=== PATIENT | male | born 1950 | race Hispanic/Latino ===

== ENCOUNTER 2020-05-27 11:59 | Observation (INO) | payer MEDICARE, MEDICAID ==
[~2020-05-27] VITALS: Ht 172.7 cm; Wt 75.7 kg
--- NOTE | 2020-05-27 12:11 | NUR ---
Pt to room # 13 with steady gait for bedside triage
--- NOTE | 2020-05-27 13:11 | NUR ---
PATIENT IS RESTING. NO DISTRESS NOTED
--- NOTE | 2020-05-27 14:11 | NUR ---
PATIENT IS RESTING NO DISTRESS NOTED
[2020-05-27] MEDS ORDERED: SERTRALINE HCL50 MG PO (14:21)
[2020-05-27] MEDS ORDERED: METOPIRONE PO (14:21)
[2020-05-27] MEDS ORDERED: CARBAMAZEPIN200 MG PO (14:22)
[2020-05-27] MEDS ORDERED: BENZTROPINE0.5 MG PO (14:23)
[2020-05-27] MEDS ORDERED: MIRTAZAPINE15 MG PO (14:24)
--- NOTE | 2020-05-27 15:35 | NUR ---
Admission Note Report Given to: NORY Transported by: Wheelchair X Stretcher Transported with: X Nurse Transporter X Patent IV O2 X Chief Security Officer Location: ICU X [facility]
--- NOTE | 2020-05-27 15:47 | NUR ---
PT ARRIVED TO MED/SURG VIA WHEELCHAIR ACCOMPANIED BY ER STAFF MEMBER;PT AMBULATED WITH A WEAK GAIT TO BEDSIDE;WT AND VS OBTAINED BY SANAM MCNAMARA;PT MOSTLY GUINEAN SPEAKING, AWAITING FAMILY TO ARRIVE FOR TRANSLATION AND FURTHER ADMISSION;PT DENIES ANY CURRENT PAIN OR DISCOMFORTS,PAIN SCALE AND REPORTING EDUCATED;RESPIRATIONS EVEN AND UNLABORED WITH CLEAR LUNG SOUNDS NOTED;ABDOMEN SOFT ON PALPATION AND ACTIVE IN ALL 4 QUADRANTS,PT REPORTS LAST BM 05/27/20;WEAK PEDAL PULSES WITH +2 EDEMA NOTED TO BLE,ENCOURAGED ELEVATION OF BLE;SLIGHT TREMORS NOTED THROUGHOUT BODY AT TIMES;SKIN INTACT;TELE MONITORING IN PLACE;#20G TO RIGHT HAND FLUSHED AND PATENT,NS STARTED @ 100ML/HR PER ORDER;PT DENIES ANY ADDITIONAL NEEDS AT THIS TIME;ENCOURAGED TO CALL FOR ASSISTANCE IF NEEDED;FALL PRECAUTIONS IN PLACE WITH BED IN THE LOWEST POSITION,BED ALARM ON FOR SAFETY,AND CALL LIGHT IN REACH;WILL CONTINUE TO MONITOR
[2020-05-27 15:58] VITALS: BP 167/95
--- NOTE | 2020-05-27 16:10 | NUR ---
JAMES,ANRP AT BEDSIDE DISCUSSING POC.
[2020-05-27] MEDS ORDERED: METOPROLOL50 M1 PO (17:06)
--- NOTE | 2020-05-27 17:30 | NUR ---
PT RESTING IN SEMI FOWLERS POSITION WITH NIECE AT BEDSIDE;RESPIRATIONS REMAIN EVEN AND UNLABORED ON RA;PT DENIES ANY CURRENT PAIN OR NEEDS;TELE MONITORING IN PLACE;IV FLUIDS INFUSING WITH EASE PER ORDER;NIECE ABLE TO PROVIDED HX ON PT FOR ADMISSION;PT DENIES ANY ADDITIONAL NEEDS AT THIS TIME AND IS ENCOURAGED TO CALL FOR ASSISTANCE IF NEEDED;CALL LIGHT IN REACH;WILL CONTINUE TO MONITOR
--- NOTE | 2020-05-27 18:14 | NUR ---
LAB AT BEDSIDE
[2020-05-27 18:45] VITALS: BP 157/94
--- NOTE | 2020-05-27 19:10 | NUR ---
REPORT RECEAVED FROM CARMEN MADISON. PT RESTING IN BED. NO S/S OF DISTRESS AT THIS TIME. WILL CONTINUE TO MONITOR.
--- NOTE | 2020-05-27 20:47 | NUR ---
PT RESTING IN BED ALERT AND ORIENTED. RESPIRATIONS EVEN AND UNLABORED ON RA. PT DENIES ANY PAIN OR DISCOMFORT AT THIS TIME. PEDAL PULSES STRONG. 100CC EMPTIED FROM URINAL. SAFETY PRECAUTIONS IN PLACE. WILL CONTINUE TO MONITOR.
[2020-05-27 23:28] VITALS: BP 152/92
--- NOTE | 2020-05-27 23:44 | NUR ---
PT RESTING IN BED, RESPIRATIONS EVEN AND UNLABORED ON RA. NO S/S OF DISTRESS AT THIS TIME. SAFETY PRECAUTIONS IN PLACE. WILL CONTINUE TO MONITOR.
[2020-05-28] VITALS (8 sets, daily range): BP systolic 132–153; BP diastolic 82–103
--- NOTE | 2020-05-28 04:01 | NUR ---
PT RESTING IN BED. RESPIRATIONS EVEN AND UNLABORED ON RA. NO S/S OF DISTRESS AT THIS TIME. WILL CONTINE TO MONITOR.
[2020-05-28 06:01] LABS: CHOLESTEROL HDL RATIO 4.3 (<4.4 (CALC))
--- NOTE | 2020-05-28 06:46 | NUR ---
05/28/20 PT note- patient is screened for PT intervention and would benefit from PT consult if medical agrees
--- NOTE | 2020-05-28 07:39 | NUR ---
REPORT RECEIVED FROM GEOVANNY FOSTER. PT RESTING IN BED SEMI FOWLERS; ALERT TO SELF ONLY. UNABLE TO ANSWER , PLACE, OR YEAR. PT APPEARS TO HAVE A COGNITIVE DELAY WITH ASSOCIATED GARBLED SPEECH. TALKS FAST AND LAUGHS INAPPROPRIATELY. PERRLA; EQUAL CHIROPRACTOR SOLE PRACTITIONER. TELE ON. IV FLUIDS INFUSING WITHOUT DIFFICULTY; IV SITE APPEARS HEALTHY. SAFETY MEASURES IN PLACE INCLUDING BED ALARM. CALL LIGHT WITHIN REACH; NEEDS ANTICIPATED BY STAFF.
[2020-05-28 08:08] LABS: HEMATOCRIT 45.8 % (39.0-50.0); HEMOGLOBIN 14.4 g/dl (14.0-18.0); IMMATURE GRANULOCYTES 0.3 % (0.0-5.0); MEAN CELL VOLUME 94.4 fL CALC (80.0-100.0); MEAN CORPUSCULAR HGB 29.7 pG CALC (26.0-32.0); MEAN CORPUSCULAR HGB CONC 31.4 g/dL CAL (32.0-36.0); NEUT# 6.07 thou/uL (1.82-7.42); RED BLOOD COUNT 4.85 mill/uL (4.70-6.10); RED CELL DISTRI WIDTH 12.8 % (11.5-15.5)
--- NOTE | 2020-05-28 08:15 | NUR ---
DR. MALIK AT BEDSIDE.
[2020-05-28 08:23] LABS: ALBUMIN 4.1 g/dL (3.2-5.0); ALKALINE PHOSPHATASE 217 u/l (38-126); ANION GAP 12 (6-22 (CALC)); BUN 16 mg/dL (8-23); BUN/CREATININE RATIO 15 (12-20 (CALC)); CARBON DIOXIDE 22 mmol/l (22-30); CHLORIDE 107 mmol/l (95-108); CREATININE 1.1 mg/dL (0.7-1.3); GFR > 60 ML/MIN (>=60 (CALC)); GFR FOR AFR.AMER. > 60 ML/MIN (>=60 (CALC)); POTASSIUM 4.1 mmol/l (3.5-5.1); SGOT/AST 35 u/l (19-48); SODIUM 136 mmol/l (137-146); TOTAL PROTEIN 7.3 g/dL (6.3-8.2)
[2020-05-28 08:25] LABS: BILIRUBIN, TOTAL 0.9 mg/dL (0.0-1.4)
--- NOTE | 2020-05-28 10:45 | NUR ---
PT AT BEDSIDE FOR EVAL. PT HAS DIFFICULTY AMBULATING R/T PARKINSONS AND HAS TONGUE THRUSTING. PT IS PLEASANT AND COOPERATIVE.
--- NOTE | 2020-05-28 11:00 | NUR ---
SISTER AT BEDSIDE; QUESTIONS ANSWERED TO SATISFACTION.
--- NOTE | 2020-05-28 16:45 | NUR ---
ORTHOSTATIC VS OBTAINED AND NEGATIVE. DIOR HOSE APPLIED. SISTER REMAINS AT BEDSIDE. URINE TO GOWN AND LINEN; REPLACED. VOIDING FREQUENTLY IN URINAL; SISTER CONCERNED ABOUT POSSIBLE BPH DX.
--- NOTE | 2020-05-28 18:58 | NUR ---
REPORT RECEIVED FROM ODIN STAUFFER RESTING IN BED. NO S/S OF DISTRESS AT THIS ITME. WILL CONTINUE TO MONITOR.
--- NOTE | 2020-05-28 21:12 | NUR ---
PT RESTING IN BED ALERT TO SELF. RESPIRATIONS EVEN AND UNLABORED ON RA. PT DENIES ANY PAIN OR DISCOMFORT AT THIS TIME. PEDAL PULSES STRONG. 125CC EMPTIED FROM URINAL. SAFETY PRECAUTIONS IN PLACE. WILL CONTINUE TO MONITOR.
[2020-05-29] VITALS: BP 153/99
--- NOTE | 2020-05-29 00:47 | NUR ---
PT RESTING IN BED, RESPIRATIONS EVEN AND UNLABORED, NO S/S OF DISTRESS AT THIS TIME. WILL CONTINUE TO MONITOR.
[2020-05-29 03:00] VITALS: BP 155/95
--- NOTE | 2020-05-29 04:10 | NUR ---
PT RESTING IN BED, NO S/S OF DISTRESS AT THIS TIME.
[2020-05-29 05:09] LABS: HEMATOCRIT 45.8 % (39.0-50.0); HEMOGLOBIN 14.4 g/dl (14.0-18.0); MEAN CELL VOLUME 93.7 fL CALC (80.0-100.0); MEAN CORPUSCULAR HGB 29.4 pG CALC (26.0-32.0); MEAN CORPUSCULAR HGB CONC 31.4 g/dL CAL (32.0-36.0); RED BLOOD COUNT 4.89 mill/uL (4.70-6.10); RED CELL DISTRI WIDTH 12.7 % (11.5-15.5)
[2020-05-29 05:40] LABS: ANION GAP 11 (6-22 (CALC)); BUN 15 mg/dL (8-23); BUN/CREATININE RATIO 14 (12-20 (CALC)); CARBON DIOXIDE 21 mmol/l (22-30); CHLORIDE 107 mmol/l (95-108); GFR > 60 ML/MIN (>=60 (CALC)); GFR FOR AFR.AMER. > 60 ML/MIN (>=60 (CALC)); POTASSIUM 4.7 mmol/l (3.5-5.1); SODIUM 135 mmol/l (137-146)
[2020-05-29 07:31] VITALS: BP 159/98
--- NOTE | 2020-05-29 07:32 | NUR ---
REPORT RECEIVED FROM GEOVANNY FOSTER. PT RESTING IN BED SEMI FOWLERS; ALERT AND OREINTED TO PERSON ONLY; COGNITIVE DELAY; CONTINUES WITH ADVANCED PARKINSONS ACTIVITY LEVEL AND TONGUE THRUSTING. DENIES PAIN. RESPIRATIONS EVEN AND UNLABORED ON ROOM AIR. 2 TARYN INTACT TO LEFT FOREHEAD; PT DECLINES HEADACHE OR PAIN TO SITE. LUNGS ARE CLEAR. TELE ON; DIOR HOSE INTACT TO BLE. IV FLUIDS INFUSING WITHOUT DIFFICULTY; IV SITE APPEARS HEALTHY. SAFETY MEASURES IN PLACE. CALL LIGHT WITHIN REACH.
--- NOTE | 2020-05-29 09:30 | NUR ---
PT SWALLOWS MEDICATIONS WHOLE; DOES HAVE SOME DIFFICULTY GETTING PILLS INTO MOUTH; ASSISTED WITH WATER. IV FLUID RATE DECREASED TO KVO. VOIDING FREQUENTLY CLEAR YELLOW URINE IN URINAL.
[2020-05-29 10:30] VITALS: BP 159/98
--- NOTE | 2020-05-29 13:02 | NUR ---
SISTER AT BEDSIDE. PT REPOSITIONING HIMSELF IN BED; SITTING UP EATING LUNCH AT THIS TIME. NO REQUESTS OR CONCERNS. CALL LIGHT WITHIN REACH.
--- NOTE | 2020-05-29 13:31 | NUR ---
IV site discontinued, cath intact. No edema , no redness, voices no discomfort.
--- NOTE | 2020-05-29 14:22 | NUR ---
Discharge instructions given. Patient verbalizes understanding of same. Discharged in stable condition via Wheelchair to Home with family. All belongings sent with pt.
== END 2020-05-29 14:21 | disposition home or self-care (01) ==
LOC: ED 11:59 → ED-I 14:20 → ED 14:49 → MS2 14:50
PROVIDERS: Nurse Practitioner; ADMIT Internal Medicine; ATTEND Internal Medicine
PROC: 0HQ1XZZ Repair Face Skin, External Approach (ICD-10-PCS; principal; 2020-05-27)
DX: R55 Syncope and collapse (principal); S01.81XA Laceration without foreign body of other part of head, initial encounter; G20 Parkinson's disease; I10 Essential (primary) hypertension; F31.9 Bipolar disorder, unspecified; Y93.9 Activity, unspecified; W18.39XA Other fall on same level, initial encounter; Y92.009 Unspecified place in unspecified non-institutional (private) residence as the place of occurrence of the external cause; Z11.59 Encounter for screening for other viral diseases; F41.9 Anxiety disorder, unspecified; F48.9 Nonpsychotic mental disorder, unspecified; R74.8 Abnormal levels of other serum enzymes
CPT/HCPCS: G0378

== ENCOUNTER 2021-06-20 11:10 | Emergency (ER) | payer MEDICARE, MEDICAID ==
[~2021-06-20] VITALS: Ht 172.7 cm; Wt 75.0 kg
[~2021-06-20 11:10] MED LIST: BENZTROPINE0.5 MG PO; CARBAMAZEPIN200 MG PO; METOPIRONE PO; METOPROLOL50 M1 PO; MIRTAZAPINE15 MG PO; SERTRALINE HCL50 MG PO
[2021-06-20 12:56] LABS: HEMATOCRIT 39.6 % (39.0-50.0); IMMATURE GRANULOCYTES 0.2 % (0.0-5.0); MEAN CELL VOLUME 95.9 fL CALC (80.0-100.0); MEAN CORPUSCULAR HGB CONC 32.3 g/dL CAL (32.0-36.0); NEUT# 9.88 thou/uL (1.82-7.42); RED BLOOD COUNT 4.13 mill/uL (4.70-6.10); RED CELL DISTRI WIDTH 12.7 % (11.5-15.5)
[2021-06-20 13:09] LABS: HEMOGLOBIN 12.8 g/dl (14.0-18.0)
[2021-06-20 13:11] LABS: PROTHROMBIN TIME 10.6 SECONDS (9.0-12.5)
[2021-06-20 13:15] LABS: ALBUMIN 4.6 g/dL (3.2-5.0); ALKALINE PHOSPHATASE 180 u/l (38-126); ANION GAP 16 (6-22 (CALC)); BILIRUBIN, TOTAL 0.9 mg/dL (0.0-1.4); BUN 28 mg/dL (8-23); BUN/CREATININE RATIO 20 (12-20 (CALC)); CARBON DIOXIDE 25 mmol/l (22-30); CHLORIDE 104 mmol/l (95-108); CREATININE 1.4 mg/dL (0.7-1.3); GFR 50 ML/MIN (>=60 (CALC)); GFR FOR AFR.AMER. > 60 ML/MIN (>=60 (CALC)); POTASSIUM 4.7 mmol/l (3.5-5.1); SODIUM 141 mmol/l (137-146); TOTAL PROTEIN 7.8 g/dL (6.3-8.2)
[2021-06-20 13:19] LABS: SGOT/AST 60 u/l (19-48)
[2021-06-20 14:08] LABS: URINE BILIRUBIN - DIPSTICK NEGATIVE (NEGATIVE); URINE BLOOD DIPSTICK NEGATIVE (NEGATIVE); URINE COLOR YELLOW; URINE GLUCOSE - DIPSTICK NEGATIVE (NEGATIVE); URINE KETONE NEGATIVE (NEGATIVE); URINE LEUK ESTERASE NEGATIVE (NEGATIVE); URINE PROTEIN - DIPSTICK NEGATIVE (NEG-TRACE); URINE SPECIFIC GRAVITY >=1.030; URINE UROBILINOGEN - DIPSTICK 0.2 E.U./dL (0.2)
[2021-06-20 14:11] LABS: URINE NITRITE - DIPSTICK NEGATIVE (Negative)
[2021-06-20 14:45] VITALS: BP 160/99
== END 2021-06-20 14:45 | disposition short-term general hospital (02) ==
LOC: ED 11:10
PROVIDERS: Family Medicine
DX: S72.141A Displaced intertrochanteric fracture of right femur, initial encounter for closed fracture (principal); G20 Parkinson's disease; F32.9 Major depressive disorder, single episode, unspecified; I10 Essential (primary) hypertension; F31.9 Bipolar disorder, unspecified; F41.9 Anxiety disorder, unspecified; W19.XXXA Unspecified fall, initial encounter

== ENCOUNTER 2022-08-04 18:05 | Observation (INO) | payer MEDICARE, MEDICAID ==
[~2022-08-04] VITALS: Ht 172.7 cm; Wt 78.0 kg
[2022-08-04 19:20] LABS: HEMATOCRIT 48.4 % (39.0-50.0); HEMOGLOBIN 15.7 g/dl (14.0-18.0); IMMATURE GRANULOCYTES 0.1 % (0.0-5.0); MEAN CELL VOLUME 93.3 fL CALC (80.0-100.0); MEAN CORPUSCULAR HGB 30.3 pG CALC (26.0-32.0); MEAN CORPUSCULAR HGB CONC 32.4 g/dL CAL (32.0-36.0); NEUT# 6.8 thou/uL (1.82-7.42); RED BLOOD COUNT 5.19 mill/uL (4.70-6.10); RED CELL DISTRI WIDTH 12.8 % (11.5-15.5)
[2022-08-04 19:36] LABS: ALKALINE PHOSPHATASE 252 u/l (38-126); ANION GAP 15 (6-22 (CALC)); BILIRUBIN, TOTAL 0.5 mg/dL (0.0-1.4); BUN 23 mg/dL (8-23); BUN/CREATININE RATIO 19 (12-20 (CALC)); CARBON DIOXIDE 25 mmol/l (22-30); CHLORIDE 104 mmol/l (95-108); CREATININE 1.2 mg/dL (0.7-1.3); ETHYL ALCOHOL 0 mg/dl (0-30); GFR FOR AFR.AMER. > 60 ML/MIN (>=60 (CALC)); GFR OTHER RACES 60 ML/MIN (>=60 (CALC)); LIPASE 84 u/l (23-300); POTASSIUM 4.9 mmol/l (3.5-5.1); SGOT/AST 44 u/l (19-48); SODIUM 140 mmol/l (137-146)
[2022-08-04 19:46] LABS: URINE BILIRUBIN - DIPSTICK NEGATIVE (NEGATIVE); URINE BLOOD DIPSTICK NEGATIVE (NEGATIVE); URINE COLOR YELLOW; URINE GLUCOSE - DIPSTICK NEGATIVE (NEGATIVE); URINE KETONE NEGATIVE (NEGATIVE); URINE LEUK ESTERASE NEGATIVE (NEGATIVE); URINE PH 5.5 (4.5-8.0); URINE PROTEIN - DIPSTICK NEGATIVE (NEG-TRACE); URINE SPECIFIC GRAVITY >=1.030; URINE UROBILINOGEN - DIPSTICK 0.2 E.U./dL (0.2)
[2022-08-04 19:52] LABS: URINE NITRITE - DIPSTICK NEGATIVE (Negative)
[2022-08-05 04:04] VITALS: BP 134/86
[2022-08-05 05:00] VITALS: BP 134/86
[2022-08-05 05:35] LABS: HEMATOCRIT 44.7 % (39.0-50.0); HEMOGLOBIN 14.5 g/dl (14.0-18.0); IMMATURE GRANULOCYTES 0.1 % (0.0-5.0); MEAN CELL VOLUME 93.5 fL CALC (80.0-100.0); MEAN CORPUSCULAR HGB 30.3 pG CALC (26.0-32.0); MEAN CORPUSCULAR HGB CONC 32.4 g/dL CAL (32.0-36.0); NEUT# 5.49 thou/uL (1.82-7.42); RED BLOOD COUNT 4.78 mill/uL (4.70-6.10); RED CELL DISTRI WIDTH 12.9 % (11.5-15.5)
[2022-08-05 05:56] LABS: ALKALINE PHOSPHATASE 225 u/l (38-126); ANION GAP 11 (6-22 (CALC)); BILIRUBIN, TOTAL 0.4 mg/dL (0.0-1.4); BUN 19 mg/dL (8-23); BUN/CREATININE RATIO 18 (12-20 (CALC)); CARBON DIOXIDE 24 mmol/l (22-30); CHLORIDE 109 mmol/l (95-108); CREATININE 1.1 mg/dL (0.7-1.3); GFR FOR AFR.AMER. > 60 ML/MIN (>=60 (CALC)); GFR OTHER RACES > 60 ML/MIN (>=60 (CALC)); POTASSIUM 4.3 mmol/l (3.5-5.1); SGOT/AST 32 u/l (19-48); SODIUM 139 mmol/l (137-146); TOTAL PROTEIN 7.3 g/dL (6.3-8.2)
[2022-08-05 09:42] VITALS: BP 123/77
[2022-08-05 09:47] VITALS: BP 122/86
[2022-08-05 19:20] VITALS: BP 122/87
[2022-08-06 04:14] VITALS: BP 129/82
[2022-08-06 06:56] VITALS: BP 125/88
[2022-08-06 09:27] VITALS: BP 108/82
[2022-08-06 14:47] VITALS: BP 127/72
[2022-08-06 19:05] VITALS: BP 134/97
== END 2022-08-06 19:14 ==
LOC: ED 18:05 → MS2 20:21
PROVIDERS: Emergency Medicine; ADMIT Internal Medicine; ATTEND Internal Medicine
DX: R41.82 Altered mental status, unspecified (principal); G20 Parkinson's disease; F31.9 Bipolar disorder, unspecified; I10 Essential (primary) hypertension; F41.9 Anxiety disorder, unspecified; Z91.81 History of falling; Z74.2 Need for assistance at home and no other household member able to render care; Z20.822 Contact with and (suspected) exposure to COVID-19